=== PATIENT | female | born 1985 | race Caucasian/White ===

== ENCOUNTER 2017-06-08 19:34 | Emergency (ER) | payer MEDICAID ==
[~2017-06-08] VITALS: Ht 162.6 cm; Wt 69.1 kg
[2017-06-08 19:36] VITALS: BP 111/76
[2017-06-08] MEDS ORDERED: ACETAMINOPHEN 500 MG TABLET ONE (20:12)
[2017-06-08] MEDS ORDERED: ACETAMINOPHEN 500 MG TABLET PO ONE (20:30)
[2017-06-08 20:59] LABS: HCG UR SG 1.022 (1.003-1.030); MICROSCOPIC AUTO
[2017-06-08 21:04] LABS: CULTURE INDICATED? YES
[2017-06-08 22:03] LABS: CULTURE INDICATED? YES; MICROSCOPIC INDICATED
== END 2017-06-08 22:44 | disposition home or self-care (01) ==
LOC: ED 21:11
DX: B34.9 Viral infection, unspecified (principal); M54.9 Dorsalgia, unspecified; G89.29 Other chronic pain
CPT/HCPCS: 81001; 81025; 87086; 99284

== ENCOUNTER 2017-08-22 12:13 | Emergency (ER) | payer MEDICAID ==
[~2017-08-22] VITALS: Ht 162.6 cm; Wt 70.0 kg
[2017-08-22] MEDS ORDERED: HYDROcodone/APAP 5/325 TABLET ONE (13:15)
[2017-08-22] MEDS ORDERED: ASPIRIN 81 MG TABLET CHEW ONE (13:15)
[2017-08-22] MEDS ORDERED: HYDROcodone/APAP 5/325 TABLET PO ONE (13:30)
[2017-08-22] MEDS ORDERED: ASPIRIN 81 MG TABLET CHEW PO ONE (13:30)
[2017-08-22 13:33] LABS: BASOPHILS # (AUTO) 0.02 x10^3/uL (0-0.1); BASOPHILS % (AUTO) 0 % (0-1); EOSINOPHILS # (AUTO) 0.12 x10^3/uL (0-0.4); EOSINOPHILS % (AUTO) 2 % (1-7); LYMPHOCYTES # (AUTO) 1.88 x10^3/uL (1-3.4); LYMPHOCYTES % (AUTO) 29 % (22-44); MD NO; MEAN CORPUSCULAR HEMOGLOBIN 31.1 pg (27.0-34.8); MEAN CORPUSCULAR HGB CONC 33.7 g/dL (32.4-35.8); MEAN CORPUSCULAR VOLUME 92.3 fL (80-100); MEAN PLATELET VOLUME 7.7 fL (7.4-10.4); MONOCYTES # (AUTO) 0.43 x10^3/uL (0.2-0.8); MONOCYTES % (AUTO) 7 % (2-9); NEUTROPHILS # (AUTO) 4.11 x10^3/uL (1.8-6.8); NEUTROPHILS % (AUTO) 63 % (42-75); PLATELET COUNT 238 x10^3/uL (130-400); RED BLOOD COUNT 4.11 x10^6/uL (3.82-5.3); RED CELL DISTRIBUTION WIDTH 13.8 % (9.6-15.2)
[2017-08-22 13:45] LABS: ALANINE AMINOTRANSFERASE 36 U/L (12-78); ALBUMIN 3.7 g/dL (3.4-5.0); ANION GAP 8 mmol/L (5-15); CALCIUM 8.4 mg/dL (8.5-10.1); CHLORIDE 110 mmol/L (98-107); CREATININE 0.66 mg/dL (0.55-1.02)
[2017-08-22 13:54] LABS: ALKALINE PHOSPHATASE 44 U/L (45-117); BILIRUBIN,TOTAL 0.3 mg/dL (0.2-1.0); TOTAL PROTEIN 7.3 g/dL (6.4-8.2); TROPONIN I < 0.015 ng/mL (0.000-0.045)
[2017-08-22 14:53] VITALS: BP 120/68
== END 2017-08-22 14:55 | disposition home or self-care (01) ==
LOC: ED 14:11
DX: N93.8 Other specified abnormal uterine and vaginal bleeding (principal); R07.89 Other chest pain; E07.9 Disorder of thyroid, unspecified
CPT/HCPCS: 36415; 71045; 80053; 83690; 84484; 84703; 85025; 93005; 99285

== ENCOUNTER 2018-03-19 07:13 | Emergency (ER) | payer MEDICAID ==
[~2018-03-19] VITALS: Ht 165.1 cm; Wt 73.4 kg
[2018-03-19 07:14] VITALS: BP 108/76
== END 2018-03-19 08:00 | disposition home or self-care (01) ==
LOC: ED 07:58
DX: G56.03 Carpal tunnel syndrome, bilateral upper limbs (principal); G89.29 Other chronic pain
CPT/HCPCS: 29260; 82962; 99283